=== PATIENT | female | born 1980 | race Caucasian/White ===

== ENCOUNTER 2018-09-26 11:08 | Emergency (ER) | payer OTHER ==
[2018-09-26 11:27] VITALS: BP 112/74
--- NOTE | 2018-09-26 11:39 | EDPHY ---
H & P Stated Complaint: right knee inj at work walking up stairs. [place] pop . swelling in thigh down Time Seen by Provider: 09/26/18 11:33 HPI/ROS: CHIEF COMPLAINT: Right knee pain HISTORY OF PRESENT ILLNESS: The patient is a 37-year-old female who comes to the emergency department complaining of right knee pain. She states that she was walking up the stairs at work on Monday when she felt a pop in her right knee. It surprised her but did not hurt that bad and she continued to work throughout the rest today. Yesterday became more painful and stiff. She began wearing a sleeve. Today it is so painful that she has trouble bearing weight or any movement at all. She feels that it is very swollen as well. I do not appreciate any swelling. She denies hip or ankle pain. She denies other injuries. Severity: Severe Modifying factors: Weight-bearing or movement REVIEW OF SYSTEMS: Constitutional: denies: chills, fever, recent illness, recent injury EENTM: denies: blurred vision, double vision, nose congestion Respiratory: denies: cough, shortness of breath Cardiac: denies: chest pain, irregular heart rate, lightheadedness, palpitations Gastrointestinal/Abdominal: denies: abdominal pain, diarrhea, nausea, vomiting, blood streaked stools Genitourinary: denies: dysuria, frequency, hematuria, pain Musculoskeletal: See HPI Skin: denies: lesions, rash, jaundice, bruising Neurological: denies: headache, numbness, paresthesia, tingling, dizziness, weakness Hematologic/Lymphatic: denies: blood clots, easy bleeding, easy bruising Immunologic/allergic: denies: HIV/AIDS, transplant 10 systems reviewed and negative except as noted EXAM: GENERAL: Well-appearing, well-nourished and in no acute distress. HEAD: Atraumatic, normocephalic. EYES: Pupils equal round and reactive to light, extraocular movements intact, sclera anicteric, conjunctiva are normal. ENT: TMs normal, nares patent, oropharynx clear without exudates. Moist mucous membranes. NECK: Normal range of motion, supple without lymphadenopathy or JVD. LUNGS: Breath sounds clear to auscultation bilaterally and equal. No wheezes rales or rhonchi. HEART: Regular rate and rhythm without murmurs, rubs or gallops. ABDOMEN: Soft, nontender, normoactive bowel sounds. No guarding, no rebound. No masses appreciated. BACK: No CVA tenderness, no spinal tenderness, step-offs or deformities EXTREMITIES: Severe pain in right knee even with very light touch to her skin. No laxity appreciated on examination. Able to extend and flex knee completely but does have associated pain. Normal sensation and movement distally. Normal range of motion, no pitting or edema. No clubbing or cyanosis. NEUROLOGICAL: Cranial nerves II through XII grossly intact. Normal speech, normal gait. 5/5 strength, normal movement in all extremities, normal sensation , normal reflexes PSYCH: Normal mood, normal affect. SKIN: Warm, dry, normal turgor, no visible rashes or lesions. Source: Patient Exam Limitations: No limitations - Personal History LMP (Females 10-55): IUD In Place Current Tetanus Diphtheria and Acellular Pertussis (TDAP): Yes - Medical/Surgical History Hx Asthma: No Hx Chronic Respiratory Disease: No Hx Diabetes: Yes Hx Cardiac Disease: No Hx Renal Disease: No Hx Cirrhosis: No Hx Alcoholism: No Hx HIV/AIDS: No Hx Splenectomy or Spleen Trauma: No Other PMH: hip repaired. shoulder surg. Breast surgery. [place] from Flu vaccination. DM 1 - Family History Significant Family History: No pertinent family hx - Social History Smoking Status: Never smoked Alcohol Use: None Constitutional: Initial Vital Signs Temperature (C) 36.9 C 09/26/18 11:16 Heart Rate 70 09/26/18 11:16 Respiratory Rate 16 09/26/18 11:16 Blood Pressure 112/74 09/26/18 11:16 O2 Sat (%) 98 09/26/18 11:16 O2 Delivery Mode Room Air Allergies/Adverse Reactions: Sulfa (Sulfonamide Antibiotics) Allergy (Intermediate, Verified 09/26/18 11:11) Hives Home Medications: Medication Instructions Recorded Escitalopram Oxalate 09/26/18 Humalog 09/26/18 Hydrocodone/APAP 5/325 [[place] 1 - 2 tab PO Q4H PRN #10 tab 09/26/18 5/325 (RX)] Tresiba 09/26/18 Medical Decision Making - Diagnostics Imaging: Discussed imaging studies w/ package line operator Radiologist ED Course/Re-evaluation: 12:20 p.m. we discussed the x-ray results. There is significant effusion but no visible bony injury. She does have pain with axial loading grinding. I suspect a meniscus injury. No obvious laxity felt on exam. Will treat with straight leg brace and crutches and pain medication and have her follow up with Orthopedics for MRI and further treatment. She understands and agrees with this plan. She will need to be on limited duty at work. Differential Diagnosis: Partial list of the Differential diagnosis considered include but were not limited to; meniscus injury, ligamentous injury and although unlikely based on the history and physical exam, I also considered fracture, infection, arthritis. I discussed these differential diagnoses and the plan with the patient as well as the usual and expected course. The patient understands that the diagnosis is provisional and that in medicine we are not always correct and that further workup is often warranted. Usual and customary warnings were given. All of the patient's questions were answered. The patient was instructed to return to the emergency department should the symptoms at all worsen or return, otherwise to followup with the physician as we discussed. Departure - Departure Disposition: Home, Routine, Self-Care Clinical Impression: Internal derangement of right knee Condition: Fair Instructions: Knee Pain (ED) Referrals: ALYSSA MILLER [Primary Care Provider] - As per Instructions Edwar Kennedy MD [Medical Doctor] - As per Instructions Stand Alone Forms: Work Limited Duty Prescriptions: Hydrocodone/APAP 5/325 [[place] 5/325 (RX)] 1 - 2 tab PO Q4H PRN #10 tab PRN Reason: Pain, Moderate
== END 2018-09-26 13:00 | disposition home or self-care (01) ==
LOC: CED 11:08
DX: M23.306 Other meniscus derangements, unspecified meniscus, right knee (principal)
CPT/HCPCS: 73562-PO; 99283-ER; L1830-ER